=== PATIENT | female | born 1985 | race Caucasian/White ===

== ENCOUNTER 2018-03-04 14:18 | Emergency (ER) | payer BC ==
[2018-03-04 14:37] VITALS: BP 122/88
--- NOTE | 2018-03-04 14:44 | UC ---
Skin Complaint HPI - HPI Summary HPI Summary: Pt c/o multiple "wasp" stings to right index finger, yesterday. Pt has taken one 25 tab of benadryl, last night. Pt states swelling, redness and pain has worsened over last 24 hours. - History of Current Complaint Chief Complaint: UCSkin Time Seen by Provider: 03/04/18 14:29 Stated Complaint: BEE STING Hx Obtained From: Patient Hx Last Menstrual Period: today ?: No Onset/Duration: Sudden Onset Skin Exposure Onset/Duration: Hours Ago Timing: Constant Onset Severity: Mild Current Severity: Mild Pain Intensity: 3 Location: Discrete - right index finger, Hand (Right) Character: Swelling, Pruritus, Redness, Painful Aggravating Factor(s): Touch, Other - movement Alleviating Factor(s): Cold Compresses Associated Signs & Symptoms: Positive: Tenderness Related History: Insect Bite/Sting - Allergy/Home Medications Allergies/Adverse Reactions: Allergies Allergy/AdvReac Type Severity Reaction Status Date / Time Penicillins Allergy Unknown Verified 03/04/18 14:37 Reaction Details Home Medications: Home Medications Nuvaring 1 unit VAGINAL SEE INSTRUCTIONS 03/04/18 [History Confirmed 03/04/18] diphenhydrAMINE HCl [Benadryl Allergy] 12.5 mg PO ONCE PRN 03/04/18 [History Confirmed 03/04/18] Review of Systems Constitutional: Negative Skin: Other - erythema, Eyes: Negative ENT: Negative Respiratory: Negative Cardiovascular: Negative Gastrointestinal: Negative Genitourinary: Negative Motor: Decreased ROM - right index finger due to swelling Neurovascular: Negative Musculoskeletal: Decreased ROM - right index finger, Edema - right index finger Neurological: Negative Psychological: Negative Is Patient Immunocompromised?: No All Other Systems Reviewed And Are Negative: Yes PMH/Surg Hx/FS Hx/Imm Hx Previously Healthy: Yes - Surgical History Surgical History: Yes Surgery Procedure, Year, and Place: wisdom teeth - Family History Known Family History: Positive: Cardiac Disease - Social History Occupation: Employed Full-time Lives: With Family Alcohol Use: Weekly Substance Use Type: None Smoking Status (MU): Never Smoked Tobacco Have You Smoked in the Last Year: No Physical Exam Triage Information Reviewed: Yes Appearance: Well-Appearing Vital Signs: Initial Vital Signs Temp 98.1 F 03/04/18 14:30 Pulse 58 03/04/18 14:30 Resp 18 03/04/18 14:30 BP 122/88 03/04/18 14:30 Pulse Ox 100 03/04/18 14:30 Vital Signs Reviewed: Yes Eye Exam: Normal ENT Exam: Normal Dental Exam: Normal Neck exam: Normal Respiratory: Positive: No respiratory distress Musculoskeletal: Positive: ROM Limited @ - right index finger, Edema @ - right index finger Neurological Exam: Normal Psychological Exam: Normal Skin Exam: Other - mild eyrthema, swelling to right index finger and upper hand Course/Dx - Differential Diagnoses - Skin Complaint Differential Diagnoses: Cellulitis - Diagnoses Provider Diagnoses: cellulitis. local allergic reaction insect sting Discharge - Sign-Out/Discharge Documenting (check all that apply): Patient Departure - Discharge Plan Condition: Stable Disposition: HOME Prescriptions: DOXYcycline CAP(*) [DOXYcycline 100MG CAP(*)] 100 mg PO Q12H #10 cap Patient Education Materials: Antihistamine (By mouth), Cellulitis (ED), Insect Bite or Sting (ED) Referrals: Shashi FARLEY,Yonny Juarez [Primary Care Provider] - If Needed Additional Instructions: Please follow up with your PCP or return to clinic as needed. - Billing Disposition and Condition Condition: STABLE Disposition: Home
== END 2018-03-04 14:54 | disposition home or self-care (01) ==
LOC: UCCORT 14:18
DX: T63.441A Toxic effect of venom of bees, accidental (unintentional), initial encounter (principal); M79.89 Other specified soft tissue disorders; Y92.9 Unspecified place or not applicable; L03.011 Cellulitis of right finger; Z88.0 Allergy status to penicillin; Z82.49 Family history of ischemic heart disease and other diseases of the circulatory system
CPT/HCPCS: 99202; G0463

== ENCOUNTER 2018-05-08 08:07 | Emergency (ER) | payer BC ==
[2018-05-08 09:01] VITALS: BP 123/85
--- NOTE | 2018-05-11 10:22 | UC ---
Discharge - Sign-Out/Discharge Documenting (check all that apply): Post-Discharge Follow Up All imaging exams completed and their final reports reviewed: No Studies - Discharge Plan Disposition: LEFT WITHOUT BEING SEEN Referrals: Shashi FARLEY,Yonny Juarez [Primary Care Provider] - - Billing Disposition and Condition Disposition: Left Without Being Seen
== END 2018-05-08 10:10 | disposition left against medical advice (07) ==
LOC: UCCORT 08:07
DX: J02.9 Acute pharyngitis, unspecified (principal); Z53.21 Procedure and treatment not carried out due to patient leaving prior to being seen by health care provider
CPT/HCPCS: 87651

== ENCOUNTER 2019-08-15 07:02 | Emergency (ER) | payer BC ==
--- NOTE | 2019-08-15 07:13 | UC ---
Throat Pain/Nasal Fernando HPI - HPI Summary HPI Summary: Patient is 34 year old female, who present today to the urgent care with sore throat for past 3 days. 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 Denies any postnasal drip Denies any fever, chills, cough chest pain or shortness of breath . Denies any abdominal pain , nausea or vomiting , diarrhea or constipation. - History of Current Complaint Stated Complaint: ST Time Seen by Provider: 08/15/19 07:06 Hx Obtained From: Patient Hx Last Menstrual Period: 04/29 - Allergies/Home Medications Allergies/Adverse Reactions: Allergies Allergy/AdvReac Type Severity Reaction Status Date / Time Penicillins Allergy Unknown Verified 08/15/19 07:16 Reaction Details Home Medications: Home Medications ValACYclovir (*) [Valtrex 500 mg (*)] 500 mg PO DAILY 08/15/19 [History Confirmed 08/15/19] PMH/Surg Hx/FS Hx/Imm Hx - Additional Past Medical History Additional PMH: Past Medical History : None Past Surgical History: wisdom tooth Family History : non contributory Social History : Weekly alcohol, non smoker, no drug use. Previously Healthy: Yes - Surgical History Surgical History: Yes Surgery Procedure, Year, and Place: wisdom teeth - Family History Known Family History: Positive: Cardiac Disease, Non-Contributory - Social History Alcohol Use: Weekly Alcohol Amount: 5 Substance Use Type: None Smoking Status (MU): Never Smoked Tobacco Have You Smoked in the Last Year: No Review of Systems All Other Systems Reviewed And Are Negative: Yes Constitutional: Positive: Negative Skin: Positive: Negative Eyes: Positive: Negative ENT: Positive: Sore Throat. Negative: Ear Ache, Nasal Discharge Respiratory: Positive: Cough - Dry Cardiovascular: Positive: Negative Gastrointestinal: Positive: Negative Genitourinary: Positive: Negative Motor: Positive: Negative Neurovascular: Positive: Negative Musculoskeletal: Positive: Negative Neurological: Positive: Negative Psychological: Positive: Negative Is Patient Immunocompromised?: No Physical Exam - Summary Physical Exam Summary: Physical Exam: Const: Appears well. No signs of apparent distress present. Alert and oriented x 3. Musculo: Walks with a normal gait. Head/Face: Atraumatic, normocephalic on inspection. Eyes: EOMI and PERRLA in both eyes. Conjunctivae clear. No discharge noted ENT: Hearing normal, TM normal appearing bilaterally, non bulging , non erythematous . No tenderness to palpation on maxillary and frontal sinus. There is pharyngeal erythema without any exudates . Uvula is midline. No postnasal drip noted Right anterior cervical lymphadenopathy noted, nontender to palpate Respiratory: Respirations are unlabored. Lungs clear to auscultation bilaterally, no wheezing , rhonchi or rales noted . CVS: Regular rate and Rhythm, S1S2 normal , no murmurs identified. Extremities: Peripheral circulation is grossly normal. Pulses 2+ Abdomen : Soft non tender , nondistended , Bowel sounds present . No guarding , rebound tenderness or rigidity noted. Skin: No lesions or rash located on the upper extremities or on the lower extremities. Neuro: Cranial nerves II to XII intact, motor and sensory intact. DTR Intact bilaterally. Mood is normal. Affect is normal. Triage Information Reviewed: Yes Vital Signs Reviewed: Yes Throat Pain/Nasal Course/Dx - Course Course Of Treatment: Rapid strep test is negative Likely viral upper respiratory infection - Differential Dx/Diagnosis Provider Diagnosis: Viral URI Discharge ED - Sign-Out/Discharge Documenting (check all that apply): Patient Departure All imaging exams completed and their final reports reviewed: No Studies - Discharge Plan Condition: Stable Disposition: HOME Patient Education Materials: Viral Syndrome (ED) Referrals: Shashi FARLEY,Yonny Juarez [Primary Care Provider] - 3 Days Additional Instructions: Your symptoms appear to be viral in nature. Throat lozenges and salt water gargles will be helpful Maintain hydration. Tylenol or ibuprofen as needed for fever Your blood pressure slightly high in Urgent care today and prehypertensive range , plan follow up with PCP for better control Return to Urgent care / ER if symptoms get worse. - Billing Disposition and Condition Condition: STABLE Disposition: Home
[2019-08-15 07:16] VITALS: BP 125/79
== END 2019-08-15 07:39 | disposition home or self-care (01) ==
LOC: UCCORT 07:02
DX: J06.9 Acute upper respiratory infection, unspecified (principal); Z88.0 Allergy status to penicillin
CPT/HCPCS: 87651; 99211; G0463